=== PATIENT | male | born 1960 | race Caucasian/White ===

== ENCOUNTER 2022-03-16 11:43 | Emergency (ER) | payer OTHER ==
[~2022-03-16] VITALS: Ht 180.3 cm; Wt 114.3 kg
[2022-03-16 11:52] VITALS: BP_SYST 168
--- NOTE | 2022-03-16 12:00 | NUR ---
Patient to ER bed 2 for evaluation. Side rails up. Report given to Sharon NEGRETE.
--- NOTE | 2022-03-16 12:04 | NUR ---
61YO M WITH C/O RIGHT LOWER ARM REDNESS AND SWELLING FROM WOODEN SPLINTER X 3 DAYS. PT DENIES PAIN. WENT TO URGENT CARE TODAY WHERE TETANUS SHOT WAS GIVEN, KEFLEX AND NAPROXEN WERE PRESCRIBED. ADVISED TO COME TO ER FOR REMOVAL OF WOODEN SPLINTER. ERMD MADE AWARE OF PT STATUS.
--- NOTE | 2022-03-16 12:18 | NUR ---
ER Dr. Moses at bedside examining patient.
[2022-03-16 12:45] LABS: BASOPHILS % (AUTO) 0.5 % (0.0-2.0); EOSINOPHILS # (AUTO) 0.5 K/uL (0.0-0.4); EOSINOPHILS % (AUTO) 4.6 % (0.0-4.0); HEMATOCRIT 41.8 % (36-54); HEMOGLOBIN 14.4 g/dL (14.0-18.0); LYMPHOCYTES # (AUTO) 2.7 K/uL (1.0-5.5); LYMPHOCYTES % (AUTO) 27.2 % (20.5-51.5); MEAN CORPUSCULAR HEMOGLOBIN 30 pg (27-31); MEAN CORPUSCULAR HGB CONC 35 % (32-36); MEAN CORPUSCULAR VOLUME 88 fL (79.0-98.0); MONOCYTES # (AUTO) 0.8 K/uL (0.0-1.0); MONOCYTES % (AUTO) 8.2 % (1.7-9.3); NEUTROPHILS % (AUTO) 59.5 % (40.0-70.0); PLATELET COUNT (AUTO) 244 K/uL (130-430); RED BLOOD CELL COUNT(AUTO) 4.76 MIL/uL (4.2-6.2); RED CELL DISTRIBUTION WIDTH 13.3 % (9.0-15.0)
[2022-03-16 13:06] LABS: ALBUMIN 3.7 g/dL (3.4-4.8); CALCIUM 8.7 mg/dL (8.4-11.0); CREATININE 0.81 mg/dL (0.55-1.30); POTASSIUM 4.3 mmol/L (3.5-5.1); TOTAL BILIRUBIN 0.3 mg/dL (0.0-1.0)
[2022-03-16] MEDS ORDERED: CLIN-142 PO (13:33)
[2022-03-16 14:14] VITALS: BP_SYST 168
--- NOTE | 2022-03-16 14:15 | NUR ---
Patient given written and verbal discharge instructions and verbalizes understanding. ER MD discussed with patient the results and treatment provided. Patient in stable condition. ID arm band removed. Rx of CLINDAMYCIN given. Patient educated on pain management and to follow up with PMD. Pain Scale 5. Opportunity for questions provided and answered. Medication side effect fact sheet provided.
== END 2022-03-16 14:15 | disposition home or self-care (01) ==
LOC: SED 11:43
DX: L03.113 Cellulitis of right upper limb (principal); Z79.899 Other long term (current) drug therapy
CPT/HCPCS: 36415; 73090; 80053; 83605; 85025; 86140; 99284